=== PATIENT | male | born 1965 | race Caucasian/White ===

== ENCOUNTER 2023-03-12 16:27 | Outpatient (AMB) | payer OTHER, SELFPAY ==
[2023-03-12 16:28] VITALS: BP 132/88; PULSE 60; O2SAT 100; BMI 25.7
--- NOTE | 2023-03-12 16:28 | A.OFFPC_ITS ---
Vital Signs 03/12/23 16:28 Height 5 ft 11 in Weight 184 lb BMI 25.7 BP 132/88 Blood Pressure Location Lt brachial Position Sitting Pulse 60 Pulse Source Pulse Oximeter Pulse Oximetry (%) 100 Oxygen Delivery Method Room Air Intake Visit Reasons: PE Director Of Pharmacy: Not Required per policy Accompanied by: Self / Same As Patient Allergies No Known Allergies [No Known Allergies*] Allergy (Verified 03/12/23 16:28) Medication List - Last Reconciled 03/12/23 by Brigida Pina MD prednisone 2.5 mg PO DAILY tadalafil 20 mg PO Q OTHER DAY PRN 90 days Tobacco use date assessed: 03/03/22 Dental Screening Dental Screen Date: 03/12/23 Did you have a dental visit in the last 12 months?: Yes Did you have a dental problem in the last 6 months where you did not have access to dental care?: No Was dental information given to patient?: Patient has dentist HPI PE HPI Details 57-year-old male with a history of hypot hyroidism, melanoma coming in for physical exam. Last seen in February 2022. Patient is up-to-date with colonoscopy in August 2019. CT chest baseline nodules no mets, labs normal mild TSH - has hypodensity on the L thyroid, umbilcal hernia 12/2022 [facility] Medical History Dyslexia Diverticular disease ADD (attention deficit disorder) Skin cancer, basal cell Raynauds disease Pulmonary embolism Melanoma Atrial fibrillation Peripheral neuropathy Hypothyroid Surgical History History of surgery Family History (Updated 03/12/23 @ 16:52 by Brigida Pina MD) Paternal Grandmother Heart attack Maternal Grandfather Heart attack Sister Basal cell adenocarcinoma Father Basal cell adenocarcinoma Mother Melanoma Heart attack Social History (Updated 03/12/23 @ 16:53 by Brigida Pina MD) Housing: House Alcohol intake: current Alcohol intake frequency: a few times a week Patient Tobacco Use Status: Never used Tobacco e-Cigarette/Vaping Use: Never Used Second Hand Smoke Exposure: No service: No Current occupational status: employed Cognitive needs: No Hearing needs: No Vision needs: Yes Questionnaire PHQ-9 Over the last 2 weeks, how often have you been bothered by any of the following problems? 1. Little interest or pleasure in doing things: not at all 2. Feeling down, depressed, or hopeless: not at all 3. Trouble falling or staying asleep, or sleeping too much: not at all 4. Feeling tired or having little energy: not at all 5. Poor appetite or overeating: not at all 6. Feeling bad about yourself - or that you are a failure or have let yourself or your family down: not at all 7. Trouble concentrating on things, such as reading the newspaper or watching television: not at all 8. Moving or speaking so slowly that other people could have noticed. Or the opposite - being so fidgety or restless that you have been moving around a lot more than usual: not at all 9. Thoughts that you would be better off or of hurting yourself in some way: not at all Total score: 0 Depression Screening Interpretation: Negative Source: Developed by Drs. Saeed Timmons, Tiffani Mejia, Jean Ryder and colleagues, with an educational parris from [employer]. Thrive Questionnaire Date Thrive assessed: 03/12/23 I am a: Patient What is your living situation today?: I have a steady place to live Within the past 12 months, did the food you bought not last and you didn't have the money to get more?: Never true Within the past 12 months, did you worry whether your food would run out before you got money to buy more?: Never true Do you have trouble paying for medicines?: No Do you have trouble getting transportation to medical appointments?: No Do you have trouble paying your heating and electricity bill?: No Do you have trouble taking care of your child, family member or friend?: No Do you have trouble with day-to-day activities such as bathing, preparing meals, shopping, managing finances, etc.?: No Are you currently unemployed and looking for a job?: No Are you interested in more education?: No Please select the resources that you would like help with: None AUDIT C Alcohol Use Questionnaire (AUDIT-C) 1. How often do you have a drink containing alcohol?: 4 or more times a week 2. How many drinks containing alcohol do you have on a typical day when you are drinking?: 1 or 2 3. How often do you have six or more drinks on one occasion?: Never Total Score: 4 MUKESH-7 AMB Questionnaire MUKESH-7 Date MUKESH - 7 assessed: 03/12/23 Feeling nervous, anxious, or on edge: 0 = Not at all Not being able to stop or control worryin = Not at all Worrying too much about different things: 0 = Not at all Trouble relaxin = Not at all Being so restless that it is hard to sit still: 0 = Not at all Becoming easily annoyed or irritable: 0 = Not at all Feeling afraid as if something awful might happen: 0 = Not at all Total MUKESH-7 score (0-4 normal; 5-9 mild; 10-14 moderate; 15-21 severe): 0 Source: Developed by Drs. Saeed Timmons, Tiffani Mejia, Jean Ryder and colleagues, with an educational parris from [employer]. Review of Systems Const Denies poor appetite and Denies weakness Eyes Denies no additional complaints ENT Reports Normal hearing present, Denies dizziness, Denies nasal congestion, Denies tinnitus and Denies sore throat Card Denies chest pain, Denies syncope, Denies rapid heart rate and Denies dyspnea Resp Denies cough and Denies dyspnea GI Denies change in stool character, Reports constipation, Denies diarrhea, Denies nausea and Denies vomiting Denies dysuria and Denies urinary frequency Neuro Reports Normal hearing present, Denies confusion, Denies dizziness, Denies syncope and Denies weakness Psych Denies confusion Physical exam (Primary Care) Vital Signs: Last Vital Signs Pulse 60 03/12/23 16:28 BP 132/88 03/12/23 16:28 Pulse Ox 100 03/12/23 16:28 Oxygen Delivery Method Room Air 03/12/23 16:28 BMI result Body Mass Index 25.7 Tobacco/Smoking Status: Tobacco use Status Tobacco use date assessed 03/03/22 03/12/23 16:29 Patient Tobacco Use Status Never used Tobacco 03/12/23 16:29 e-Cigarette/Vaping Use Never Used 03/12/23 16:29 PHQ-9: PHQ-9 Score PHQ-9: Total score 0 03/12/23 16:29 Depression Screening Interpretation: Negative Thrive Assessment: Date of Thrive Assessment Date Thrive assessed 03/12/23 03/12/23 16:29 Const General: No confusion Orientation/consciousness: No confusion HENMT Head: Yes normocephalic Ears: external ears normal and TM's normal bilaterally Face and sinus: Yes normal facial exam Mouth: moist mucous membranes Throat: Yes tonsils normal Eyes Conjunctivae: conjunctivae normal Pupils: Equal, round and reactive pupils present and Pupil accommodation reflex normal Direct Ophthalmoscopy: normal light reflex Neck Neck: No lymphadenopathy Thyroid: Thyroid normal Chest Chest palpation & inspection: normal inspection of the chest Resp Effort & Inspection: normal respiratory effort and no audible wheezes Auscultation: clear to auscultation bilaterally, no crackles, no wheezes and lung sounds not diminished Cardio Rate: regular rate Rhythm: regular rhythm Peripheral pulses: radial pulses present and dorsalis pedis present GI Other: guaiac negative, prostate mild enlarged Palpation (GI): no masses Auscultation: normal bowel sounds and normoactive bowel sounds Male General Exam: Yes normal external exam Skin General skin exam: no rashes or lesions noted Rashes: no rashes Neuro General: No confusion Cranial nerves: Yes Equal, round and reactive pupils present and Yes Normal hearing present Cognition (Neuro): normal cognition Gait exam (Neuro): Normal gait present Motor exam (neuro): 5/5 motor strength present throughout Deep tendon reflexes (DTR's): Right brachioradialis reflex intensity grade: 2+, Left brachioradialis reflex intensity grade: 2+, Right patellar reflex intensity grade: 2+ and Left patellar reflex intensity grade: 2+ Extrem General: No edema Assessment and Plan Assessment & Plan (1) Annual physical exam: Code(s): Z00.00 - Encounter for general adult medical examination without abnormal findings (2) Hypothyroid: Code(s): E03.9 - Hypothyroidism, unspecified Qualifiers: Hypothyroidism type: acquired Qualified Code(s): E03.9 - Hypothyroidism, unspecified Plan: TSH Mildly low and will continue monitoring. (3) Melanoma: Comment: Left elbow skin August 2016 and left axilla [place] December 2019 CT scan minor pulmonary nodules with otherwise negative for Mets Code(s): C43.9 - Malignant melanoma of skin, unspecified Qualifiers: Melanoma location: upper extremity including shoulder Laterality: left Qualified Code(s): C43.62 - Malignant melanoma of left upper limb, including shoulder Plan: Patient continues to follow up with Oncology and CT scan done yearly January 2023 negative for med (4) Pulmonary nodules: Comment: 01/2023 Code(s): R91.8 - Other nonspecific abnormal finding of lung field Plan: Incidental finding, stable January 2023 CT scan (5) Umbilical hernia: Comment: 01/2023 Code(s): K42.9 - Umbilical hernia without obstruction or gangrene Plan: Incidental finding January 2023 (6) Left thyroid nodule: Comment: 01/2023 Code(s): E04.1 - Nontoxic single thyroid nodule Plan: Stable CT scan January 2023 Orders: Orders Prostate Specific Antigen Scr Today Z00.00 - Encounter for general adult medical examination without abnormal findings Coding Level of Care Code Est Pt Prev Care 40-64y(63335) Diagnoses Annual physical exam Z00.00 Acquired hypothyroidism E03.9 Hypothyroidism type: acquired Malignant melanoma of left upper extremity including shoulder C43.62 Melanoma location: upper extremity including shoulder Laterality: left Pulmonary nodules R91.8 Umbilical hernia K42.9 Left thyroid nodule E04.1
== END 2023-03-12 17:13 | disposition home or self-care (01) ==
PROVIDERS: Visit Provider Internal Medicine
DX: Z00.00 Encounter for general adult medical examination without abnormal findings (principal); E03.9 Hypothyroidism, unspecified; C43.62 Malignant melanoma of left upper limb, including shoulder; R91.8 Other nonspecific abnormal finding of lung field; K42.9 Umbilical hernia without obstruction or gangrene; E04.1 Nontoxic single thyroid nodule
CPT/HCPCS: 99396

== ENCOUNTER 2024-03-16 15:39 | Outpatient (AMB) | payer OTHER, SELFPAY ==
--- NOTE | 2024-03-16 16:19 | MHC.PC.OV ---
Vital Signs 03/16/24 16:21 Height 5 ft 11 in Weight 181 lb 2 oz BMI 25.3 BP 108/72 Blood Pressure Location Rt brachial Position Sitting Pulse 60 Pulse Source Pulse Oximeter Pulse Oximetry (%) 96 Oxygen Delivery Method Room Air Intake Visit Reasons: Annual PE Intake Note: Patient is here today for a physical. Pt refuse flu shot today. Transfer Agent Required: No Python Django Developer: Not Required per policy Accompanied by: Self / Same As Patient Allergies No Known Allergies [No Known Allergies*] Allergy (Verified 03/16/24 16:20) Medication List - Last Reconciled 03/16/24 by Brigida Pina MD prednisone 2.5 mg PO DAILY tadalafil 20 mg PO Q OTHER DAY PRN 90 days Tobacco use date assessed: 03/16/24 Dental Screening Dental Screen Date: 03/16/24 Did you have a dental visit in the last 12 months?: Yes Did you have a dental problem in the last 6 months where you did not have access to dental care?: No Was dental information given to patient?: Patient has dentist HPI Annual PE HPI Details 58-year-old male with a history of melanoma hypothyroidism history of pulmonary nodules umbilical hernia left thyroid nodule last seen in February last year. Patient's colonoscopy is up-to-date 09/01/2019. Review of the notes ER visit November 13 a fall diagnosed with closed displaced fracture of the triquetrum of the right wrist has had head trauma patient fell going down the stairs CT was there. Right side of the head had a bump. Four episodes of vomiting throughout the day. CT negative. wrist is doing good [facility] Medical History (Updated 03/16/24 @ 19:04 by Brigida Pina MD) Dyslexia Diverticular disease ADD (attention deficit disorder) Skin cancer, basal cell Raynauds disease Pulmonary embolism Melanoma Atrial fibrillation Peripheral neuropathy Hypothyroid Surgical History History of surgery Family History (Updated 03/16/24 @ 16:24 by JOSLYN Quintanilla) Paternal Grandmother Heart attack Maternal Grandfather Heart attack Sister Basal cell adenocarcinoma Father Basal cell adenocarcinoma Mother Melanoma Heart attack Other Mental health disorder Social History (Updated 03/16/24 @ 17:01 by Brigida Pina MD) Housing: House Alcohol intake: current Alcohol intake frequency: a few times a week Comment: alcohol brewwer twice a week 1-2 drinks Patient Tobacco Use Status: Never used Tobacco e-Cigarette/Vaping Use: Never Used Second Hand Smoke Exposure: No service: No Current occupational status: employed Cognitive needs: No Hearing needs: No Vision needs: Yes Questionnaire PHQ-9 Over the last 2 weeks, how often have you been bothered by any of the following problems? 1. Little interest or pleasure in doing things: not at all 2. Feeling down, depressed, or hopeless: not at all 3. Trouble falling or staying asleep, or sleeping too much: not at all 4. Feeling tired or having little energy: not at all 5. Poor appetite or overeating: not at all 6. Feeling bad about yourself - or that you are a failure or have let yourself or your family down: not at all 7. Trouble concentrating on things, such as reading the newspaper or watching television: not at all 8. Moving or speaking so slowly that other people could have noticed. Or the opposite - being so fidgety or restless that you have been moving around a lot more than usual: not at all 9. Thoughts that you would be better off or of hurting yourself in some way: not at all Total score: 0 Depression Screening Interpretation: Negative Depression Screening Done: Yes Source: Developed by Drs. Saeed Timmons, Tiffani Mejia, Jean Ryder and colleagues, with an educational parris from [employer]. Thrive Questionnaire Date Thrive assessed: 03/16/24 I am a: Patient What is your living situation today?: I have a steady place to live Within the past 12 months, did the food you bought not last and you didn't have the money to get more?: Never true Within the past 12 months, did you worry whether your food would run out before you got money to buy more?: Never true Do you have trouble paying for medicines?: No Do you have trouble getting transportation to medical appointments?: No Do you have trouble paying your heating and electricity bill?: No Do you have trouble taking care of your child, family member or friend?: No Do you have trouble with day-to-day activities such as bathing, preparing meals, shopping, managing finances, etc.?: No Are you currently unemployed and looking for a job?: No Are you interested in more education?: No Please select the resources that you would like help with: None Currently or been in a relationship where the following occur: No concerns reported THRIVE Score: 0 AUDIT C Alcohol Use Questionnaire (AUDIT-C) 1. How often do you have a drink containing alcohol?: 2-3 times a week 2. How many drinks containing alcohol do you have on a typical day when you are drinking?: 1 or 2 3. How often do you have six or more drinks on one occasion?: Less than monthly Total Score: 4 MUKESH-7 AMB Questionnaire MUKESH-7 Date MUKESH - 7 assessed: 03/16/24 Feeling nervous, anxious, or on edge: 0 = Not at all Not being able to stop or control worryin = Not at all Worrying too much about different things: 0 = Not at all Trouble relaxin = Not at all Being so restless that it is hard to sit still: 0 = Not at all Becoming easily annoyed or irritable: 0 = Not at all Feeling afraid as if something awful might happen: 0 = Not at all Total MUKESH-7 score (0-4 normal; 5-9 mild; 10-14 moderate; 15-21 severe): 0 Source: Developed by Drs. Saeed Timmons, Tiffani Mejia, Jean Ryder and colleagues, with an educational parris from [employer]. Review of Systems Const Denies poor appetite and Denies weakness Eyes Denies no additional complaints ENT Reports Normal hearing present, Denies dizziness, Denies nasal congestion, Denies tinnitus and Denies sore throat Card Denies chest pain, Denies syncope, Denies rapid heart rate and Denies dyspnea Resp Denies cough and Denies dyspnea GI Denies change in stool character, Reports constipation, Denies diarrhea, Denies nausea and Denies vomiting Denies dysuria and Denies urinary frequency Neuro Reports Normal hearing present, Denies confusion, Denies dizziness, Denies syncope and Denies weakness Psych Denies confusion Physical exam (Primary Care) Vital Signs: Last Vital Signs Pulse 60 03/16/24 16:21 BP 108/72 03/16/24 16:21 Pulse Ox 96 03/16/24 16:21 Oxygen Delivery Method Room Air 03/16/24 16:21 BMI result Body Mass Index 25.3 Tobacco/Smoking Status: Tobacco use Status Tobacco use date assessed 03/16/24 03/16/24 16:25 Patient Tobacco Use Status Never used Tobacco 03/16/24 17:01 e-Cigarette/Vaping Use Never Used 03/16/24 17:01 PHQ-9: PHQ-9 Score PHQ-9: Total score 0 03/16/24 16:55 Depression Screening Interpretation: Negative Thrive Assessment: Date of Thrive Assessment Date Thrive assessed 03/16/24 03/16/24 16:25 Currently or been in a relationship where the following occur: No concerns reported Const General: No confusion Orientation/consciousness: No confusion HENMT Head: Yes normocephalic Ears: external ears normal and TM's normal bilaterally Face and sinus: Yes normal facial exam Mouth: moist mucous membranes Throat: Yes tonsils normal Eyes Conjunctivae: conjunctivae normal Pupils: Equal, round and reactive pupils present and Pupil accommodation reflex normal Direct Ophthalmoscopy: normal light reflex Neck Neck: No lymphadenopathy Thyroid: Thyroid normal Chest Chest palpation & inspection: normal inspection of the chest Resp Effort & Inspection: normal respiratory effort and no audible wheezes Auscultation: clear to auscultation bilaterally, no crackles, no wheezes and lung sounds not diminished Cardio Rate: regular rate Rhythm: regular rhythm Peripheral pulses: radial pulses present and dorsalis pedis present GI Other: guaiac negative, prostate N Palpation (GI): no masses Auscultation: normal bowel sounds and normoactive bowel sounds Rectal Exam - Male: Yes deferred Male General Exam: Yes normal external exam Skin General skin exam: no rashes or lesions noted Rashes: no rashes Neuro General: No confusion Cranial nerves: Yes Equal, round and reactive pupils present and Yes Normal hearing present Cognition (Neuro): normal cognition Gait exam (Neuro): Normal gait present Motor exam (neuro): 5/5 motor strength present throughout Deep tendon reflexes (DTR's): Right brachioradialis reflex intensity grade: 2+, Left brachioradialis reflex intensity grade: 2+, Right patellar reflex intensity grade: 2+ and Left patellar reflex intensity grade: 2+ Extrem General: No edema Coding Level of Care Code Est Pt Prev Care 40-64y(58025) Diagnoses Annual physical exam Z00.00 Concussion without loss of consciousness, subsequent encounter S06.0X0D Encounter type: subsequent encounter Loss of consciousness presence/duration: without LOC Closed fracture of right wrist with routine healing, subsequent encounter S62.101D Encounter type: subsequent encounter Fracture healing: with routine healing Fracture type: closed Malignant melanoma of left upper extremity including shoulder C43.62 Laterality: left Melanoma location: upper extremity including shoulder Acquired hypothyroidism E03.9 Hypothyroidism type: acquired Acute pulmonary embolism without acute cor pulmonale, unspecified pulmonary embolism type I26.99 Acute cor pulmonale presence: without acute cor pulmonale Chronicity: acute Pulmonary embolism type: unspecified Adrenal insufficiency E27.40 Assessment & Plan Assessment & Plan (1) Annual physical exam: Code(s): Z00.00 - Encounter for general adult medical examination without abnormal findings Category: Medical Plan: Patient is advised to eat healthy, keep well hydrated, keep active and have adequate sleep. (2) Concussion: Comment: fall12/02/2023 Code(s): S06.0XAA - Concussion with loss of consciousness status unknown, initial encounter Category: Medical Qualifiers: Encounter type: subsequent encounter Loss of consciousness presence/duration: without LOC Qualified Code(s): S06.0X0D - Concussion without loss of consciousness, subsequent encounter Plan: Stable status post fall 12/02/2023 (3) Right wrist fracture: Comment: FallNovember 2023 Code(s): S62.101A - Fracture of unspecified carpal bone, right wrist, initial encounter for closed fracture Category: Medical Qualifiers: Encounter type: subsequent encounter Fracture healing: with routine healing Fracture type: closed Qualified Code(s): S62.101D - Fracture of unspecified carpal bone, right wrist, subsequent encounter for fracture with routine healing Plan: Stable (4) Melanoma: Comment: Left elbow skin August 2016 and left axilla [place] December 2019 CT scan minor pulmonary nodules with otherwise negative for Mets December 2023 Code(s): C43.9 - Malignant melanoma of skin, unspecified Category: Medical Qualifiers: Laterality: left Melanoma location: upper extremity including shoulder Qualified Code(s): C43.62 - Malignant melanoma of left upper limb, including shoulder Plan: Continue to follow-up with Hematology-Oncology (5) Hypothyroid: Code(s): E03.9 - Hypothyroidism, unspecified Category: Medical Qualifiers: Hypothyroidism type: acquired Qualified Code(s): E03.9 - Hypothyroidism, unspecified Plan: Continue with monitoring of thyroid (6) Pulmonary embolism: Comment: May 2018 Code(s): I26.99 - Other pulmonary embolism without acute cor pulmonale Category: Medical Qualifiers: Acute cor pulmonale presence: without acute cor pulmonale Chronicity: acute Pulmonary embolism type: unspecified Qualified Code(s): I26.99 - Other pulmonary embolism without acute cor pulmonale Plan: Continuing to monitor (7) Adrenal insufficiency: Code(s): E27.40 - Unspecified adrenocortical insufficiency Category: Medical Plan: Continue on prednisone 2.5 mg once a day Orders: Orders Comprehensive Met. Panel Today E03.9 - Hypothyroidism, unspecified Free T4 (Free Thyroxine) Today E03.9 - Hypothyroidism, unspecified Thyroid Stimulating Hormone Today E03.9 - Hypothyroidism, unspecified Vitamin B12 and Folate Today E03.9 - Hypothyroidism, unspecified Complete Blood Count Auto Diff Today E03.9 - Hypothyroidism, unspecified Lipid Panel Today E03.9 - Hypothyroidism, unspecified, E78.00 - Pure hypercholesterolemia, unspecified Prostate Specific Antigen Scr Today E03.9 - Hypothyroidism, unspecified
[2024-03-16 16:21] VITALS: BP 108/72; PULSE 60; O2SAT 96; BMI 25.3
== END 2024-03-16 17:17 | disposition home or self-care (01) ==
PROVIDERS: PCP Internal Medicine; Visit Provider Internal Medicine
DX: Z00.00 Encounter for general adult medical examination without abnormal findings (principal); C43.62 Malignant melanoma of left upper limb, including shoulder; I26.99 Other pulmonary embolism without acute cor pulmonale; E27.40 Unspecified adrenocortical insufficiency; S06.0X0A Concussion without loss of consciousness, initial encounter; S62.101A Fracture of unspecified carpal bone, right wrist, initial encounter for closed fracture; E03.9 Hypothyroidism, unspecified

== ENCOUNTER → 2024-03-16 15:39 | Outpatient (BNVA) | payer OTHER, SELFPAY | PROVIDERS: PCP Internal Medicine; Visit Provider Internal Medicine ==